=== PATIENT | female | born 2000 | race Caucasian/White ===

== ENCOUNTER 2024-11-30 18:42 | Emergency (ER) | payer OTHER, MEDICAID, SELFPAY ==
--- NOTE | ~2024-11-30 | XR_ITS ---
EXAMINATION: XR chest 1V portable Exam Date/Time: 11/30/2024 21:15 CDT HISTORY: SOB Comparison: None. RESULT: Lines, tubes, and devices: None. Lungs and pleura: Low lung volumes, with crowding. Otherwise clear. Cardiomediastinal silhouette: Unremarkable. Other: No acute osseous or upper abdominal finding. IMPRESSION: No acute cardiopulmonary process. Reviewed, dictated and finalized at location K.
[2024-11-30 18:52] VITALS: BP 112/67; PULSE 128; RESP 18; TEMP 36.7; O2SAT 100
--- OUTSIDE RECORDS SUMMARY | 2024-11-30 19:10 | XMS_ITS | CONTINUITY OF CARE DOCUMENT ---
Author Name freeman millard Address Unknown Organization [facility] Address [id number] [place] [address] [address] [place] [address] Phone [phone] Care Team Providers Care Mainspring Strip Gauger Name Role Phone Gita Morris MD Unavailable [phone] SEBAS URENA MD Unavailable [phone] INSURANCE PROVIDERS Payer name Policy type / Coverage type [place] [employer] Medicaid 1 [id number]
--- OUTSIDE RECORDS SUMMARY | 2024-11-30 19:10 | XMS_ITS | Clinical Summary ---
Author Organization [facility] Address [address] [place] [address] Phone Care Team Providers Care Application Defense Manager Name Role Phone Blank Nicole MD Primary Care Provider Unavail able Allergies No known active allergies Medications No known medications Active Problems No known active problems Immunizations Immunization Administration Dates Next Due (ACTHIB/HIBERIX)(2 MOS-5 YRS /6 WKS-4 YRS) HAEMOPHILUS INFLUENZAE TYPE B VACCINE (HIB), PRP-T CONJUGATE, 4 DOSE, 0.5 ML IM 08/12/2002,2001,2001,04/18 (ADACEL/BOOSTRIX)(10 YR UP) TDAP VACCINE, 0.5ML, IM 08/10/2020,07/10/2012 (GARDASIL 9)(9-45 YRS) HUMAN PAPILLOMAVIRUS VACCINE, TYPES 6, 11, 16, 18, 31, 33, 45, 52, 58, NONAVALENT (9VHPV), 2 OR 3 DOSE, IM 08/10/2020 (GARDASIL)(9-45 YRS) HUMAN PAPILLOMAVIRUS VACCINE, TYPES 6, 11, 16, 18, QUADRIVALENT (4VHPV), 3 DOSE, IM 06/22/2015 (INFANRIX)(6 WKS-6 YRS) DIPT HERIA, TETANUS TOXOIDS, AND ACCELLULAR PERTUSSIS VACCINE (DTAP), 0.5 ML IM 03/21/2006,08/12/2002,2001,06/20,2001 (IPOL)(6 WKS AND UP) POLIOVI PACHECO VACCINE, INACTIVATED (IPV), 3 DOSE, SUBCUT OR IM 03/21/2006,08/12/2002,2001,04/18 (M-M-R II/PRIORIX)(12 MO UP) MEASLES, MUMPS AND RUBELLA VIRUS VACCINE, 0.5 ML IM/SUBCUT 05/12/2007,03/21/2006 (MENACTRA)(9 MO-55 YR) MENIN GOCOCCAL POLYSACCHARIDE A, C, Y AND W-135 DIPTHERIA TOXOID CONJUGATE VACCINE, (PF), 0.5ML, IM 07/10/2012 (VARIVAX)(12 MOS UP)VARICELL A VIRUS VACCINE (PF) 0.5 ML, SUB CUT 11/13/2007,02/10/2002 Hepatitis B Vaccine 2001,2001,2000 INFLUENZA VACCINE QUADRIVALE NT 6 MOS UP PF IM 08/10/2020,05/31/2017 Influenza Seasonal Unspecifi ed Formulation IM 06/22/2015 Meningococcal A Conjugate Vaccine IM 05/31/2017 PREVNAR (PCV13) pneumococcal 13-valent conjugate Vaccine 05/12/2002,2001,2001,04/18 Skin Test TB 08/10/2020 Social History Tobacco Use Types Packs/Day Years Used Date Smoking Tobacco: Never Assessed Comments Unknown Sex and Gender Information Value Date Recorded Sex Assigned at Not on file Legal Sex Female 3:03 PM CDT Gender Identity Not on file Sexual Orientation Not on file Last Filed Vital Signs Vital Sign Reading Time Taken Comments Blood Pressure 112/72 01/05/2021 10:24 AM CDT Pulse 78 01/05/2021 10:24 AM CDT Temperature 36.7 C (98 F) 01/05/2021 10:24 AM CDT Respiratory Rate 18 01/05/2021 10:24 AM CDT Oxygen Saturation 100% 01/05/2021 10:24 AM CDT Inhaled Oxygen Concentration - - Weight 104.8 kg (231 lb) 01/05/2021 10:24 AM CDT Height 172.7 cm (5' 8 ) 08/10/2020 10:18 AM RN SOCIAL SERVICES Body Mass Index 35.12 08/10/2020 10:18 AM RN SOCIAL SERVICES Plan of Treatment Health Maintenance Due Date Last Done Comments CHLAMYDIA SCREENING (ANNUAL) 11-24 YEARS 02/09/2012 CERVICAL CANCER SCREENING 2022 PAP SMEAR 2022 PAP SMEAR 2022 INFLUENZA VACCINE (#1) 2024 , 05/31/2017, 06/22/2015 DTAP/TDAP/TD VACCINES (8 - T d or Tdap) 08/10/2030 08/10/2020, 07/10/2012, 03/21/2006, Additional history exists HEPATITIS B VACCINES Completed 2001, 2001, 2001 PNEUMOCOCCAL VACCINE 0-49 YEARS Completed 05/12/2002, 2001, 2001, Additional history exists HPV VACCINES Completed 08/10/2020, 06/22/2015 Insurance Care Teams Application Defense Manager Relationship Specialty Start Date End Date Blank Nicole MD PCP - General Pediatrics 05/31/17
--- OUTSIDE RECORDS SUMMARY | 2024-11-30 19:10 | XMS_ITS | Clinical Summary ---
Author Organization [facility] Address [address] [place] [address] Care Team Providers Care Termite Renewal Inspector Name Role Phone Farzaneh Adkins MD Primary Care Provider [phone] Source Comments [facility] Affiliates and Associated Physician Practices is amultiple site organization consisting of ambulatory clinics and hospital sitesin [place], [place], [place] and [place]. This disclosure is being madepursuant to the Care Everywhere program and may not contain all information available regarding this patient. Last updated 18.[facility] [place] Allergies No known active allergies Medications Be aware that medications may not be up to date on this document. Always verify current medications with the patient. No known medications Active Problems No known active problems Social History Tobacco Use Types Packs/Day Years Used Date Smoking Tobacco: Never Assessed Alcohol Use Standard Drinks/Week Comments No 0 (1 standard drink = 0.6 oz pur e alcohol) Sex and Gender Information Value Date Recorded Sex Assigned at Not on file Gender Identity Not on file Sexual Orientation Not on file Last Filed Vital Signs Vital Sign Reading Time Taken Comments Blood Pressure 118/65 02/03/2012 8:15 AM CDT Pulse 110 02/03/2012 8:15 AM CDT Temperature 37.1 C (98.8 F) 02/03/2012 8:15 AM CDT Respiratory Rate 22 02/03/2012 8:15 AM CDT Oxygen Saturation 100% 02/02/2012 11:36 PM CDT Inhaled Oxygen Concentration - - Weight 61 kg (134 lb 7.7 oz) 02/02/2012 7:46 PM CDT Height - - Body Mass Index - - Plan of Treatment Health Maintenance Due Date Last Done Comments PAP SMEAR 2001 HIV SCREENING 02/09/2016 HPV VACCINE (1 - 3-dose series) 02/09/2016 CHLAMYDIA/GONORRHEA SCREENING 2017 MENINGOCOCCAL (Group B) VACC INE SHARED DECISION-MAKING (1 of 2 - Standard) 2017 HEPATITIS C SCREENING 02/04/2019 DTAP/TDAP/TD VACCINES (1 - Tdap) 02/09/2020 HEPATITIS B VACCINE (1 of 3 - 19+ 3-dose series) 02/09/2020 COVID-19 VACCINE (1 - 2023-2 5 season) 2024 INFLUENZA VACCINE (#1) 2024 DEPRESSION SCREENING 09/09/2024 ZOSTER VACCINE (1 of 2) 2051 HIB VACCINE Aged Out No longer eligi ble based on patient's age to complete this topic MENINGOCOCCAL GROUPS A/C/Y/W VACCINE Aged Out No longer eligible b ased on patient's age to complete this topic PNEUMOCOCCAL VACCINE Aged Out No long er eligible based on patient's age to complete this topic Care Teams Termite Renewal Inspector Relationship Specialty Start Date End Date Farzaneh Adkins MD [address] [place] [address] PCP - General 02/02/12
--- OUTSIDE RECORDS SUMMARY | 2024-11-30 19:10 | XMS_ITS | Data Portability ---
Author Organization [facility] Address [address] [place] [address] Care Team Providers Care Manager [employer]icon[employer] Name Role Phone AVA HERNANDEZ Primary Care Provider Assessment Encounter Date Assessment Date Assessment LastModified by Organization Details LastModified Time 10/21/2024 10/21/2024 Patient is ___weeks . Discussed plan. [email or web address] Not available 10/21/2024 14:46:15 11/11/2024 11/11/2024 Patient is _28__weeks . Discussed plan. [email or web address] Not available 11/11/2024 15:49:24 11/25/2024 11/25/2024 Patient is _30__weeks . Discussed plan. Not available 11/25/2024 14:45:42 Plan of Treatment Reminders Order Date Submit Date Provider Last Modified By Organization Details Last Modified Time Details Appointments U/S OB GROWTH 2024 01:00P M ULTRASOUND Not available Not available Not available OB ROUTINE 2024 11:00A M Shwetha Pena CNM Not available Not available Not available OB ROUTINE 2024 09:45A M IMNGO MARCOS MD Not available Not available Not available Lab None recorde d. Referral None recorde d. Procedures None recorde d. Surgeries None recorde d. Imaging US, obstetr ic, follow- up 2024 025 [email or web address] [place], [address], [place], [address], 11/05/2024 22:26:43 US, [facility] ic, follow- up 2024 025 [email or web address] [place], [address], [address], [place], [address], 10/15/2024 19:35:34 Medication Orders None recorde d. Patient TargetsNo targets recorded. Patient InstructionsNo instructions recorded. Reason for Referral None Reported. Results Created Date Observation Date Name Description Value Unit Range Abnormal Flag Note LastModifiedBy Organization Detail LastModifiedTime 11/12/1911/11/2024 HEMAT OCRIT (HCT) HCT 36.1 % (based on docume nted legal sex) 34.0-4 5.0 Not Available [facility] (Lab) [address], [place], [address], 11/12/2024 13:43:25 11/12/19 25 11/11/2024 HEMOG LOBIN (HGB) HGB 11.8 g/dL (based on docume nted legal sex) 11.6-1 5.4 Not Available [facility] (Lab) [address], [place], [address], 11/12/2024 13:43:25 11/12/19 25 11/11/2024 HIV 1/2 ANTIG EN/AN TIBOD Y, REFLE X CONFI RMATI ON HIV antigen/anti body Nonrea ctive nonrea ctive HIV-1 antig en and HIV-1 /HIV- 2 antib odies were not detec juana. No labor atory evide nce of HIV infec tion. Not Available [facility] (Lab) [address], [place], [address], 11/12/2024 13:43:26 11/12/19 25 11/11/2024 GTT - GESTA KIRAN L SENG N, ACOG OB glucose, 1 hour screen 92 mg/dL 70-135 Not Available [facility] (Lab) [address], [place], [address], 11/12/2024 13:43:26 11/12/19 25 11/11/2024 RPR SCREE N, REFLE X TITER /CONF IRMAT ION RPR qualitative Nonrea ctive nonrea ctive Not Available [facility] (Lab) [address], [place], [address], 11/12/2024 13:43:26 09/16/19 25 09/16/2024 US, obste tric, 2nd or 3rd trime ster No observ ation record ed. [email or web address] [place] [address], [place], [address], 09/16/2024 18:08:06 09/16/19 25 09/16/2024 US, obste tric, follo w-up No observ ation record ed. [email or web address] [address], [place], [address], 09/18/2024 17:43:31 10/15/19 25 10/15/2024 US, obste tric, follo w-up No observ ation record ed. [email or web address] [address], [place], [address], 10/28/2024 19:09:36 10/15/19 25 10/15/2024 US, obste tric, follo w-up No observ ation record ed. [email or web address] [place] [address], [place], [address], 10/15/2024 18:36:04 11/05/19 25 11/05/2024 US, obste tric, follo w-up No observ ation record ed. [email or web address] [place] [address], [place], [address], 11/05/2024 18:36:53 11/05/19 25 11/05/2024 US, obste tric, follo w-up No observ ation record ed. [address], [place], [address], 11/10/2024 09:29:45 Result Notes None recorded. Problems Name Problem SNOMED Code Status Onset Date Resolution Date Notes Provider Name and Address Organization Details Recorded Time 39868324 Active 2023 [facility] 12:10:37 Obesity 745706379 Active bmi 37-anten atal testing Shwetha Pena CNM [address], [place], [address], [facility] 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 4 12:36:02 COVID-19 337536260 Active 2024 bASA and serial growth Danica Simone [facility], [facility] 5 15:23:56 COVID-19 277391031 Active 2024 bASA and serial growth Danica Nichols [facility], [facility] 5 15:23:56 Problem Notes None recorded. Procedures Surgical History Date Name Laterality Status Provider Name and Address Organization Details Recorded Time 03/10/20 24 Date of Last Pap Smear completed Lesli Riojas [facility] 06/04/2024 13:18:31 09/09/19 09 tonsilectomy/adeno ids completed Leslifrederic Riojas [facility] 07/01/2024 16:59:33 09/09/19 07 adenomyomectomy completed Leslifrederic Riojas [facility] 07/01/2024 16:59:28 Imaging Results Imaging Date Name Status LastModified by Organiz ation Details LastModified Time 09/16/2024 US, obstetric, 2nd or 3rd trimester completed [email or web address] [place] [address], [place], [address], 09/16/2024 18:08:06 09/16/2024 US, obstetric, follow-up completed [email or web address] [address], [place], [address], 09/18/2024 17:43:31 10/15/2024 US, obstetric, follow-up completed [email or web address] [address], [place], [address], 10/28/2024 19:09:36 10/15/2024 US, obstetric, follow-up completed [email or web address] [place] [address], [place], [address], 10/15/2024 18:36:04 11/05/2024 US, obstetric, follow-up completed [email or web address] [place] [address], [place], [address], 11/05/2024 18:36:53 11/05/2024 US, obstetric, follow-up completed [email or web address] [address], [place], [address], 11/10/2024 09:29:45 Procedure Notes None recorded. Medical Equipment None Reported. Allergies No known drug allergies Medications Name Sig Start Date Stop Date Status Note LastModified by Organization Details LastModified Time benzonatate 200 mg capsule TAKE 1 CAPSULE BY MOUTH THREE TIMES DAILY NEEDED FOR COUGH 12/16 completed Not Available Not Available Not Available prednisone 20 mg tablet TAKE 2 TABLETS BY MOUTH DAILY WITH FOOD FOR 5 DAYS. DO NOT TAKE WITH ASPIRIN OR NSAIDS SUCH ALEVE OR IBUPROFEN ETC 12/16 completed Not Available Not Available Not Available amoxicillin 875 mg tablet TAKE 1 TABLET BY MOUTH EVERY 12 HOURS FOR 10 DAYS 12/16 completed Not Available Not Available Not Available scopolamine 1 mg over 3 days transdermal patch APPLY 1 PATCH BY TRANSDERM AL ROUTE FOR 3 DAYS. 11/25 completed Not Available Not Available Not Available albuterol sulfate HFA 90 mcg/actuati on aerosol inhaler INHALE 2 PUFFS BY MOUTH EVERY 4 HOURS NEEDED 12/16 completed Not Available Not Available Not Available ondansetron 4 mg disintegrat ing tablet DISSOLVE 1 TABLET ON THE TONGUE EVERY 6 HOURS 11/25 completed Not Available Not Available Not Available Vitafol Ultra 29 mg iron-1 mg-200 mg capsule active Not Available Not Available Not Available Aurovela Fe 1-20 (28) 1 mg-20 mcg (21)/75 mg (7) tablet TAKE 1 TABLET BY MOUTH EVERY DAY 03/10 completed Not Available Not Available Not Available Nextstellis 3 mg-14.2 mg (28) tablet TAKE 1 TABLET BY MOUTH EVERY DAY 06/05 completed Not Available Not Available Not Available Vitals Date Recorded Body weight Body mass index (BMI) Body height Systolic blood pressure Diastolic blood pressure Provider Name and Address Organization Details Last Updated DateTime 10/21/2024 800308.0 2221 g 36.5 kg/m2 170.18 cm 115 mm[Hg] 68 mm[Hg] [facility] 5 14:46:49 Date Recorded Body weight Body mass index (BMI) Body height Systolic blood pressure Diastolic blood pressure Provider Name and Address Organization Details Last Updated DateTime 11/11/2024 429865.4 2984 g 36.3 kg/m2 170.18 cm 129 mm[Hg] 77 mm[Hg] Lesli [facility] 5 15:46:39 Date Recorded Body weight Body mass index (BMI) Body height Systolic blood pressure Diastolic blood pressure Provider Name and Address Organization Details Last Updated DateTime 11/25/2024 751320.4 2984 g 36.3 kg/m2 170.18 cm 116 mm[Hg] 73 mm[Hg] Lesli [facility] 14:24:46 Social History Question Answer Notes LastModified by Organizat ion Details LastModified Time Tobacco Smoking Status Never Smoker Jane willard, [facility] 12/17/2023 13:45:36 What Is Your Level Of Alcohol Consumption? None [email or web address] Information not available 06/05/2024 If You Are , What Was Your Level Of Alcohol Consumption Prior To ? Occasional [email or web address] Information not available 06/05/2024 How Many Years Have You Consumed Alcohol? 1 Information not available 03/10/2024 Are You Blind Or Do You Have Difficulty Seeing? No Information not available 03/10/2024 What Is Your Level Of Caffeine Consumption? Occasional Information not available 12/17/2023 How Much Tobacco Do You Chew? None Information not available 03/10/2024 In The 14 Days Before Symptom Onset, Have You Had Close Contact With A Laboratory-confir med COVID-19 While That Case Was Ill? No Information not available 12/17/2023 In The 14 Days Before Symptom Onset, Have You Had Close Contact With A Person Who Is Under Investigation For COVID-19 While That Person Was Ill? No Information not available 12/17/2023 Have You Been To An Area Known To Be High Risk For COVID-19? No Information not available 12/17/2023 Are You Deaf Or Do You Have Serious Difficulty Hearing? No Information not available 03/10/2024 What Type Of Diet Are You Following? REGULAR Information not available 03/10/2024 What Is The Highest Grade Or Level Of School You Have Completed Or The Highest Degree You Have Received? 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 No Information not available 03/10/2024 Do You Use Protection During Sex? No Information not available 03/10/2024 Do You Use Your Seat Belt Or Car Seat Routinely? Yes Information not available 03/10/2024 Do You Have Smoke And Carbon Monoxide Detectors In Your Home? Yes Information not available 03/10/2024 At What Age Did You Start Smoking Tobacco? 0 Information not available 03/10/2024 How Much Tobacco Do You Smoke? No kindred Information not available 03/10/2024 Do You Feel Stressed (tense, Restless, Nervous, Or Anxious, Or Unable To Sleep At Night)? GU4318-1 [email or web address] Information not available 07/01/2024 Do You Use Any Illicit Or Recreational Drugs? No kindred Information not available 03/10/2024 Do You Use Sunscreen Routinely? Yes kindred Information not available 03/10/2024 How Many Years Have You Smoked Tobacco? 0 Information not available 03/10/2024 Have You Used IV Drugs? No Information not available 03/10/2024 Sex: Unknown Functional Status Question Answer Note LastModified by Organizat ion Details LastModified Time Do you have difficulty walking or climbing stairs? No [email or web address] Information not available 06/05/2024 Are you able to walk? YESWOREST Information not available 03/10/2024 Are you able to care for yourself? Yes Information not available 06/05/2024 Do you have difficulty dressing or bathing? No [email or web address] Information not available 06/05/2024 What is your exercise level? Occasional Information not available 03/10/2024 Mental Status None recorded. Family History Relationship Description Onset Age of this Age Resolved Age Notes LastModified by Organization Details LastModified Time Mother Hypertensive disorder kindred Not available 2023 13:48:23 Paternal Grandmother Malignant tumor of breast [email or web address] Not available 2023 14:05:10 Paternal Grandfather Diabetes mellitus Not available 2023 13:49:17 Maternal Aunt Polycystic ovary syndrome [email or web address] Not available 11/07 14:08:15 Maternal Grandmother Disorder of thyroid gland [email or web address] Not available 07/22 12:10:06 Maternal Grandfather Hypertensive disorder [email or web address] Not available 07/22 12:10:06 Maternal Grandfather Diabetes mellitus [email or web address] Not available 09/16 16:36:23 Father Disorder of thyroid gland Not available 07/22 12:10:06 Medical History Condition Response Allergies (Food, seasonal, environmental ) N Other N Breast Cancer N Drug/Latex Allergies/Reactions N Blood Transfusion N Dermatologic Disorders N Lung Disease N Defects or Inherited Disease N Breast Problem N Gestational Diabetes N Hematologic disorders N Anesthesia Complications N History of STI N Deep Vein Thrombosis N Polycystic ovary syndrome N Anxiety Disorder N Autoimmune disease N Arthritis N Infertility N Polyps N Acid Reflux (GERD) N History of abnormal pap N Cancer N Stroke N Varicosities N Neurologic/Epilepsy N Endometriosis N High Cholesterol N Headaches N Fibromyalgia N Kidney Disease N Heart Problems N Kidney or Bladder Problems N Thyroid Problems N GI Problems N Eating Disorder N Anemia N Art (IVF or FET) N Psychiatric Illness N Ovarian Cancer N Diabetes N Pulmonary (TB, Asthma) N Hepatitis/Liver Disease N No Past Medical History N Eczema N Urinary Tract Infection N Abuse/Domestic Violence N Asthma N Trauma/Violence N Depression/ depression N Heart Disease N Pre-Eclampsia N Hypertension N Osteoporosis N Thrombophilias N Gynecological History Statement/Question Response Abnormal Pap N Date of Last Mammogram Date of LMP 03/14/2024 N On BCP's at Conception? N STIs/STDs N Was last menstrual period normal Y HPV Vaccine Y Colposcopy Duration of Flow (days) 4 Current Control Method Date of control 12/27/2023 Are cycles usually normal N Date of Last Colonoscopy Sexually Active? Y N/A Menses Monthly Y Date of DEXA bone scan Age of first menstrual cycle 13 Date of Last Pap Smear 03/10/2024 Sexual Problems? N LMP Approximate N Obstetrics History GPAL:G 1 P 0 0 0 0 Type Value Living 0 Total 1 Past Encounters Encounter ID Performer Location Encounter Start Date Encounter Closed Date Diagnosis/Indication Diagnosis SNOMED-CT Code Diagnosis ICD10 Code Diagnosis Note [id number] MARIA Martinez [place] [address] [address] 12/17/2023 13:38:11 12/17/2023 14:38:14 Contraception care management 223094672 Z30.9 Discussed all control options in great detail. Pt would like to start ocp. She is aware of the risks and benefits. She does not have any medical condition that is contraindi cated with the use of estrogen containing control. Pt will start her pills on the first day following the start of her period. She is aware it is not effective for control the first month. She is also aware of the importance of taking at the same time every day. Encouraged use of condoms as the pill does not protect against STD's. Will return in 3-4 months for med check. Consent was read and signed. Pt verbalized understand ingkajal ed STI screenRTC for WWE/med check in 3-4 months (pt opts to defer pap until f/u appointmen t) Time spent in visit is a total of 22 mins with at least 50% of visit consisting of counseling and review of plan of care. Initial pr escription of oral contraception 759600465 Z30.011 [id number] MARIA Martinez [place] [address] [address] 03/10/2024 16:17:42 03/11/2024 11:09:35 Screening procedure 84818974 Z13.9 Gynecologi c examination 59521676 Z01.419 Z11.3 Z11.8 WWEpap updateddec lined STI screenrout ine labs/PCP It is strongly advised to have an annual flu shot and up can obtain at most pharmacies . If you have not had a TDap shot in the last 10 years you should obtain one as well.Discu ssed with patient & provided with informatio n regarding HPV vaccine if applicable . Encourage safe sexual practices, to use condoms and limit partners if not already in a monogamous relationsh ip.Do monthly self breast exams. BRCA testing is now available for patients with strong genetic history of female cancer. If interested contact the office.Eng age in regular exercise. Avoid tobacco and illicit drugs. This lifestyle behavior pattern will lead to less health conditions and longer life span. If BMI greater than 25 dietary consult advised. Patient received above instructio ns, and questions have been answered. If you have any questions please call or respond to this email. Patient was made aware of the patient portal and may obtain a paper copy of today's plan if desired. Contracept ion care management 442865698 Z30.9 All BC options discussedo pts to switch to nextstelli srx sent, r/b/a reviewedre cords requested from recent pelvic u/s at [facility] d check in 3-4 months [id number] Pamela Zee [place] [address],[place] [address] 06/05/2024 13:55:23 06/15/2024 14:54:37 Uterine size for dates discrepancy 148077159 O26.849 [id number] [facility] [address] [address] 06/05/2024 13:57:09 06/08/2024 07:47:10 [id number] Kaila Correa [place] [address],[place] [address] 06/29/2024 16:26:08 06/29/2024 16:57:01 [id number] [facility] [address] [address] 07/01/2024 16:31:47 07/02/2024 10:28:26 Nausea and vomiting 98520505 R11.2 Amenorrhea 87760033 N91. 2 reviewed precaution s and educationo k for flu/covid vaccinesed c 02/01/25, continue vitamin dailypap up to date [id number] [facility] [address],[place] [address] 07/21/2024 12:14:52 07/21/2024 13:12:57 screening 363105479 Z36.82 Z3A.12 [id number] [facility] [address] [address] 07/22/2024 11:55:57 07/22/2024 12:52:32 Routine care 944378571 Z34.90 Gestation period, 12 weeks 25139019 Z3A.12 Dizziness 501499128 R42 [id number] [facility] [address] [place] [address] 08/19/2024 11:16:38 08/19/2024 12:09:53 Abdominal pain in 839487696 O99.891 Z3A.[id number] [facility] [address] [address] 08/19/2024 11:17:59 08/19/2024 14:00:37 Gestation period, 16 weeks 62005232 Z3A.[id number] [facility] [address],[place] [address] 09/16/2024 14:36:08 09/16/2024 17:06:53 Gestation period, 20 weeks 60825846 Z3A.20 [id number] [facility] [address] [address] 09/16/2024 14:46:47 09/16/2024 16:21:14 screening for malformation 846142210 Z36.3 Z3A.20 [id number] [facility] [address] [address] 10/15/2024 11:44:24 10/15/2024 14:35:28 screening 646282704 Z36.2 Z3A.[id number] [facility] [address] [address] 10/21/2024 14:31:12 10/21/2024 14:59:33 Gestation period, 25 weeks 42667467 Z3A.25 [id number] [facility] [address] [address] 11/05/2024 14:48:54 11/05/2024 15:54:01 condition affecting obstetrical care of mother 357546500 O35.3XX0 Z3A.[id number] [facility] [address] [address] 11/11/2024 15:30:06 11/11/2024 16:02:07 Gestation period, 28 weeks 80574753 Z3A.[id number] [facility] [address] [address] 11/25/2024 14:07:57 11/25/2024 14:50:54 Gestation period, 30 weeks 03134263 Z3A.30 Health Concerns Section Related Observation LastModified by Organization Detai ls LastModified Time None Recorded Concern Status LastModified by Organization Details LastModified Time None Recorded Advance Directives Directive None Recorded Payers Encounter Date Sequence Insurance Name Policy Number Policy Acosta Covered Member ID Acosta Member ID Guarantor Name 10/15/2024 1 [employer] - [employer]AN MANAGEMENT (PPO) 2001 Girma Chin [id number] Roberto Cobianell 10/15/2024 2 [place] [facility] Roberto Cobianell [id number] Roberto Muhammad 10/21/2024 1 [employer] - [employer]AN MANAGEMENT (PPO) 2001 Girma Chin [id number] Roberto Cobianell 10/21/2024 2 [place] [facility] Roberto Cobianell [id number] Roberto Cobianell 11/05/2024 1 [employer]AN MANAGEMENT (PPO) 2001 Girma Chin [id number] Roberto Cobianell 11/05/2024 2 [place] [facility] Roberto Muhammad [id number] Roberto Muhammad 11/11/2024 1 [employer]AN MANAGEMENT (PPO) 2001 Girma Chin [id number] Roberto Muhammad 11/11/2024 2 [place] [facility] Roberto Muhammad [id number] Roberto Muhammad 11/25/2024 1 [employer] - [employer] MANAGEMENT (PPO) 2001 [address]ma Chin [id number] Roberto Cobianell 11/25/2024 2 [place] [facility] Roberto Muhammad [id number] Roberto Muhammad OBGyn Episode Ob Episode Information Episode Created Date Number of Fetuses Patient Bloodtype Patient rh Status Prepregnancy Weight lbs Domestic Partner Domestic Partner Phone Father Name Payroll Officer Status 07/22/20 24 1 B Positive 230 Austyn Muhammad OPEN Fetus Data First Name Last Name Admitted to NICU Weight (g) Sex Living Outcome Pediatric Complications Fetus ID Race Codes Race Delivery Type [id number] Problems Problem Notes ovarian cyst Problem Name Start Date End Date Resolution Snomed Code Not e Primigravida 183722896 bASA COVID-19 09/28/2024 856813869 bASA and serial growth Obesity 181776397 bmi 37-ant enatal testing Deshaun Calculation Initial Deshaun Date Initial Exam Date Initial Exam Provider Initial Ultrasound Date Last Menstrual Period Date Ultra Sound Weeks Gestation 01/30/2025 06/29/2024 Shwetha Pena 06/05/2024 03/14/2024 5 Eighteen To Twenty Week Deshaun Update Ultra Sound Date Fundal Height At Umbil Quickening Date Ultra Sound Latest Weeks Gestation Final Deshaun Confirmed By Final Deshaun Confirmed Date Final Deshaun Date Ultra Sound Latest Days Gestation 0 0 Pre-juan f Flowsheet Flowsheet Date 07/22/2024 Parisi Score Blood Edema Fundus Height Fundus Units Glucose Ketones Leukocytes Nitrite Labor Signs Protein Cervic Dilation Cervic Effacement Cervic Station neg trace none trace Type Weight in lbs Pre/Post Dialysis Refused Weight 225.135887679109 BP Diastolic BP Location Tested BP Systolic BP Type 76 122 Fetus Heart Rate Present Fetus Movement A No Comments Patient is having some nause a. has kendy byrd for scop patch, reviewed US, cyst ED precautions, start routine care Flowsheet Date 08/19/2024 Parisi Score Blood Edema Fundus Height Fundus Units Glucose Ketones Leukocytes Nitrite Labor Signs Protein Cervic Dilation Cervic Effacement Cervic Station Type Weight in lbs Pre/Post Dialysis Refused BP Diastolic BP Location Tested BP Systolic BP Type Fetus Heart Rate Present Fetus Movement Comments Flowsheet Date 08/19/2024 Parisi Score Blood Edema Fundus Height Fundus Units Glucose Ketones Leukocytes Nitrite Labor Signs Protein Cervic Dilation Cervic Effacement Cervic Station none Type Weight in lbs Pre/Post Dialysis Refused 225.378656192768 BP Diastolic BP Location Tested BP Systolic BP Type 77 115 Fetus Heart Rate Present Fetus Movement A No Comments Patient is having some nause a and pressure. reviewed us, reviewed ovarian cysts, f/u 4 weeks, precautions and education Flowsheet Date 09/16/2024 Parisi Score Blood Edema Fundus Height Fundus Units Glucose Ketones Leukocytes Nitrite Labor Signs Protein Cervic Dilation Cervic Effacement Cervic Station Type Weight in lbs Pre/Post Dialysis Refused BP Diastolic BP Location Tested BP Systolic BP Type Fetus Heart Rate Present Fetus Movement Comments Flowsheet Date 09/16/2024 Parisi Score Blood Edema Fundus Height Fundus Units Glucose Ketones Leukocytes Nitrite Labor Signs Protein Cervic Dilation Cervic Effacement Cervic Station none neg Type Weight in lbs Pre/Post Dialysis Refused [id number] BP Diastolic BP Location Tested BP Systolic BP Type 80 117 Fetus Heart Rate Present Fetus Movement A Yes Comments reviewed precautions and edu cation, +FM, had covid week ago or so start bASA and q 4 week US, discussed labor, low intervention. will find out gender next week! anatomy incomplete Flowsheet Date 10/15/2024 Parisi Score Blood Edema Fundus Height Fundus Units Glucose Ketones Leukocytes Nitrite Labor Signs Protein Cervic Dilation Cervic Effacement Cervic Station Type Weight in lbs Pre/Post Dialysis Refused BP Diastolic BP Location Tested BP Systolic BP Type Fetus Heart Rate Present Fetus Movement Comments Flowsheet Date 10/21/2024 Parisi Score Blood Edema Fundus Height Fundus Units Glucose Ketones Leukocytes Nitrite Labor Signs Protein Cervic Dilation Cervic Effacement Cervic Station neg none Type Weight in lbs Pre/Post Dialysis Refused [id number] BP Diastolic BP Location Tested BP Systolic BP Type 68 115 Fetus Heart Rate Present Fetus Movement A Yes Comments Flowsheet Date 11/05/2024 Parisi Score Blood Edema Fundus Height Fundus Units Glucose Ketones Leukocytes Nitrite Labor Signs Protein Cervic Dilation Cervic Effacement Cervic Station Type Weight in lbs Pre/Post Dialysis Refused BP Diastolic BP Location Tested BP Systolic BP Type Fetus Heart Rate Present Fetus Movement Comments Flowsheet Date 11/11/2024 Parisi Score Blood Edema Fundus Height Fundus Units Glucose Ketones Leukocytes Nitrite Labor Signs Protein Cervic Dilation Cervic Effacement Cervic Station neg none Type Weight in lbs Pre/Post Dialysis Refused [id number] BP Diastolic BP Location Tested BP Systolic BP Type 77 129 Fetus Heart Rate Present Fetus Movement A Yes Comments doing well ! +FM, girl! GCT today, precautions and education, planning tdap unsure about rsv Flowsheet Date 11/25/2024 Parisi Score Blood Edema Fundus Height Fundus Units Glucose Ketones Leukocytes Nitrite Labor Signs Protein Cervic Dilation Cervic Effacement Cervic Station Type Weight in lbs Pre/Post Dialysis Refused [id number] BP Diastolic BP Location Tested BP Systolic BP Type 73 116 Fetus Heart Rate Present Fetus Movement A Yes Comments +FM doing well, will see dr chung for peds, will discuss rsv and preadmit at next visit, discussed kick counts precautions reviewed f/u 2 weeks Menstrual History Last Menstrual Date Menses Monthly On Bcp Conception Prior Menses Frequency Hcg Plus Date Menarche Onset Age 0703/14/20[birth year] Delivery Information Delivery Date Delivery Type Labor Anesthesia Weeks Gestation Incision Type Labor Labor Length Hrs Delivered By Post Complications Tubal Sterilization Discharge Date Comments Discharge Information Feeding Method Contraceptive Method Maternal HG B and HCT Levels
[2024-11-30 21:02] VITALS: BP 129/77; PULSE 130; PULSE 133; RESP 20; TEMP 36.9; O2SAT 98
[2024-11-30 21:03] VITALS: O2SAT 100
--- NOTE | 2024-11-30 21:04 | ECG_ITS ---
Test Date: 2024-11-30 21:12:50 Measurements Intervals [place] Rate: 140 P: -4 VA: 136 QRS: 126 QRSD: 83 T: -26 QT: 269 QTc: 412 Interpretive Statements SINUS TACHYCARDIA, LEFT POSTERIOR FASCICULAR BLOCK [QRS AXIS > 109, INFERIOR Q] POOR R WAVE PROGRESSION No previous ECG available for comparison Electronically Signed On 12-01-2024 16:03:51 CDT by Gamaliel Doyle M.D.
[2024-11-30 21:05] VITALS: O2SAT 100
[2024-11-30 21:23] LABS: Basophils Percent Auto 0.3 % (0.2-1.2); Eosinophils Percent Auto 0.1 % (0-4.4); Hematocrit 35.8 % (42.0-52.0); Hemoglobin 11.7 g/dL (14.0-18.0); Immature Granulocyte Absolute 0.06 K/mm3 (0.00-0.031); Immature Granulocyte Percent A 0.7 % (0-0.5); Lymphocytes Absolute Auto 0.52 K/mm3 (0.9-3.2); Lymphocytes Percent Auto 5.7 % (18.3-44.2); Mean Corpuscular HGB Conc 32.7 g/dl (32-36); Mean Corpuscular Hemoglobin 28.2 pg (26-34); Mean Corpuscular Volume 86.3 fl (80-100); Mean Platelet Volume 10.7 fl (7.4-10.4); Monocytes Absolute Auto 0.8 K/mm3 (0.1-0.6); Monocytes Percent Auto 8.3 % (2.6-8.5); Neutrophils Absolute Auto 7.7 K/mm3 (1.3-6.7); Neutrophils Percent Auto 84.9 % (45.5-73.1); Platelet Count Result 224 k/mm3 (150-375); Red Blood Count 4.15 M/mm3 (4.6-6.20); Red Cell Distribution Width 13.8 % (11.5-14.5); White Blood Count 9.1 K/mm3 (4.5-10.0)
[2024-11-30 21:34] LABS: Alanine Aminotransferase 31 U/L (6-35); Albumin Level 3.9 g/dL (3.5-5.1); Alkaline Phosphatase 95 U/L (38-126); Anion Gap 12 mmol/L (4-12); Aspartate Amino Transferase 32 U/L (14-36); Bilirubin,Total 0.4 mg/dL (0.2-1.3); Blood Urea Nitrogen 3 mg/dL (7-17); Calcium 9.3 mg/dL (8.4-10.2); Carbon Dioxide 19 mmol/L (22-30); Chloride 103 mmol/L (98-107); Estimated CRCL calculation 162 ml/min; Estimated Glomerular Filt Rate > 60; Glucose 106 mg/dL (65-110); Potassium 4.1 mmol/L (3.4-5.0); Sodium 134 mmol/L (137-145)
--- OUTSIDE RECORDS SUMMARY | 2024-11-30 21:35 | XMS_ITS | Clinical Summary ---
Author Organization [facility] Address [address] [place] [address] Phone Care Team Providers Care Epic [facility] Name Role Phone Blank Nicole MD Primary [...] cm (5' 8 ) 08/10/2020 10:18 AM MOLD SHAKER Body Mass Index 35.12 08/10/2020 10:18 AM MOLD SHAKER Plan of Treatment Health Maintenance Due Date [...] VACCINES Completed 08/10/2020, 06/22/2015 Insurance Care Teams [facility] Relationship Specialty Start Date End Date Blank Nicole MD PCP - General Pediatrics 05/31/17
--- OUTSIDE RECORDS SUMMARY | 2024-11-30 21:35 | XMS_ITS | CONTINUITY OF CARE DOCUMENT ---
Author Name freeman millard Address Unknown Organization [facility] Address [address] [place] [address] [address] [place] [address] Phone [phone] Care Team Providers Care Assistant Food Service Director Name Role Phone Gita Morris MD Unavailable SEBAS URENA MD Unavailable [phone] INSURANCE PROVIDERS Payer name Policy type / Coverage type [place] red democrat [employer] Medicaid 1 [id number]
--- OUTSIDE RECORDS SUMMARY | 2024-11-30 21:35 | XMS_ITS | Clinical Summary ---
Author Organization [facility] Address [address] [place] [address] Care Team Providers Care Wood Molder Name Role Phone Farzaneh Adkins MD Primary Care Provider Source Comments [facility] and Associated Physician Practices is amultiple site organization consisting of ambulatory clinics and hospital sitesin [place], [place]. This disclosure is being madepursuant to the Care Everywhere program and may not contain all information available regarding this patient. Last updated 18.[facility] [employer]! Allergies No known active allergies Medications Be [...] age to complete this topic Care Teams Wood Molder Relationship Specialty Start Date End Date Farzaneh Adkins MD [address] [place] [address] PCP - General 02/02/12
[2024-11-30] MEDS: SODIUM CHLORIDE 0.9% IV 1,000 ML 999 ML IV CONT (21:53)
[2024-11-30] MEDS: LIDOCAINE 2% VISC SOLN 15 ML UDC PO (21:54)
[2024-11-30] MEDS: MAG HYDROX/AL HYDROX/SIMETH 30 ML UDC PO (21:54)
[2024-11-30 21:59] LABS: Influenza A QL RT-PCR Negative (Negative); Influenza B QL RT-PCR Positive (Negative); RSV RNA, RT-PCR Negative (Negative); SARS-CoV-2 RNA PCR Negative (Negative)
[2024-11-30 22:36] VITALS: BP 114/63; PULSE 120; RESP 23; TEMP 36.8; O2SAT 100
--- NOTE | 2024-11-30 23:26 | ED.SOB ---
HPI - SOB/Dyspnea General Chief Complaint: Shortness of Breath/Dyspnea Stated Complaint: SOB Time Seen by Provider: 11/30/24 21:22 History of Present Illness HPI Narrative: Patient is a 24-year-old female who is 31 weeks that presents ER with cough. Cough associated with sinus congestion postnasal drip beginning yesterday so today is day 2. No documented fevers. No chest pain. Has burning in the back her throat especially when she lays down. Mild improvement with Tums. She sees Shwetha Pena at [facility] for her OB care. No urinary symptoms. . Related Data Home Medications ?Medication ?Instructions ?Recorded ?Confirmed ?Last Taken ?Type aspirin 81 mg chewable tablet 81 mg PO DAILY 11/30/24 11/30/24 11/30/24 History Allergies Allergy/AdvReac Type Severity Reaction Status Date / Time No Known Allergies Allergy Verified 11/30/24 21:03 Review of Systems Review of Systems: All systems reviewed & are unremarkable except as noted in HPI and below Constitutional: Constitutional: Reports no additional constitutional complaints Cardiovascular: Cardiovascular: Reports no additional cardiovascular complaints Respiratory: Respiratory: Reports no additional respiratory complaints Gastrointestinal: Gastrointestinal: Reports no additional gastrointestinal complaints [facility] Past Medical History Medical History (Updated 11/30/24 @ 23:31 by Senthil Lozada MD) Healthy female adult Surgical History Surgical History (Updated 11/30/24 @ 23:28 by Senthil Lozada MD) No pertinent past surgical history Exam Narrative: GENERAL: Well-appearing, well-nourished, and in no acute distress. HEAD: Normocephalic, atraumatic. ENT: Mucous membranes moist. CHEST: Clear to auscultation. No respiratory distress. HEART: Tachycardic and regular. Normal peripheral pulses. ABDOMEN: Soft, nontender, nondistended. EXTREMITIES: Normal range of motion. No edema. SKIN: Warm, dry, no rash. NEURO: Alert and oriented x3. PSYCH: Normal mood and affect. Course Course Emergency Course: Resting comfortably. Hydrated. Informed of results. First dose of Tamiflu here. Follow up with her OB. Patient's heart rate is elevated which may be related to some general. Burning in throat improved with viscous lidocaine/Mylanta. Heart rate in the 120 and is in sinus rhythm. Vital Signs Vital signs: Vital Signs Temperature 98.1 F 11/30/24 18:52 Pulse Rate 128 H 11/30/24 18:52 Respiratory Rate 18 11/30/24 18:52 Blood Pressure 112/67 11/30/24 18:52 Pulse Oximetry 100 11/30/24 18:52 Oxygen Delivery Room Air 11/30/24 18:52 Temperature 98.3 F 11/30/24 22:36 Pulse Rate 120 H 11/30/24 22:36 Respiratory Rate 23 H 11/30/24 22:36 Blood Pressure 114/63 11/30/24 22:36 Pulse Oximetry 100 11/30/24 22:36 Oxygen Delivery Room Air 11/30/24 21:05 MDM - SOB/Dyspnea Lab Data 11/30/24 21:15 11/30/24 21:15 Labs: Lab Results 11/30/24 Range/Units 21:15 WBC 9.1 (4.5-10.0) K/mm3 RBC 4.15 L (4.6-6.20) M/mm3 Hgb 11.7 L (14.0-18.0) g/dL Hct 35.8 L (42.0-52.0) % MCV 86.3 (80-100) fl MCH 28.2 (26-34) pg MCHC 32.7 (32-36) g/dl RDW 13.8 (11.5-14.5) % Plt Count 224 (150-375) k/mm3 MPV 10.7 H (7.4-10.4) fl Immature Gran % (Auto) 0.7 H (0-0.5) % Neut % (Auto) 84.9 H (45.5-73.1) % Lymph % (Auto) 5.7 L (18.3-44.2) % Harris % (Auto) 8.3 (2.6-8.5) % Eos % (Auto) 0.1 (0-4.4) % Baso % (Auto) 0.3 (0.2-1.2) % Lymph # (Auto) 0.52 L (0.9-3.2) K/mm3 Harris # (Auto) 0.8 H (0.1-0.6) K/mm3 Eos # (Auto) 0.0 (0-0.3) K/mm3 Baso # (Auto) 0.0 (0.0-0.1) K/mm3 Abs Immat Gran (auto) 0.06 H (0.00-0.031) K/mm3 Absolute Neuts (auto) 7.7 H (1.3-6.7) K/mm3 Absolute Nucleated RBC 0.000 (0.0-0.012) K/mm3 Nucleated RBC % 0.0 (0.0-0.2) % Sodium 134 L (137-145) mmol/L Potassium 4.1 (3.4-5.0) mmol/L Chloride 103 (98-107) mmol/L Carbon Dioxide 19 L (22-30) mmol/L Anion Gap 12 (4-12) mmol/L BUN 3 L (7-17) mg/dL Creatinine 0.56 L (0.7-1.0) mg/dL Estim Creat Clear Calc 162 ml/min Estimated GFR > 60 (59 - ) Glucose 106 (65-110) mg/dL Calcium 9.3 (8.4-10.2) mg/dL Total Bilirubin 0.4 (0.2-1.3) mg/dL AST 32 (14-36) U/L ALT 31 (6-35) U/L Alkaline Phosphatase 95 (38-126) U/L Total Protein 7.0 (6.3-8.2) g/dL Albumin 3.9 (3.5-5.1) g/dL Influenza A (RT-PCR) Negative (Negative) Influenza B (RT-PCR) Positive A (Negative) RSV (RT-PCR) Negative (Negative) SARS-CoV-2 RNA (RT-PCR) Negative (Negative) Imaging Data Radiologist's impression: ITS Impressions Chest X-Ray 11/30/24 22:07 IMPRESSION: No acute cardiopulmonary process. ECG Data EKG #1: ECG completion date: 11/30/24 ECG completion time: 21:12 EKG Interpretation: tachycardia (140), sinus rhythm, non-specific ST changes, normal QRS, normal QT and NL axis Discharge Plan Discharge Clinical Impression: Influenza B Patient Disposition: Home, Self-Care Condition: Stable Instructions: Influenza (ED) Additional Instructions: Return ER if you have increased shortness of breath, you lose consciousness, you cannot keep down food/water/medication, or you have additional concerns. Patient Language: Vietnamese Prescriptions: New oseltamivir 75 mg capsule 75 mg PO BID Qty: 9 0RF famotidine 10 mg tablet 10 mg PO BID Qty: 14 0RF No Action aspirin 81 mg tablet,chewable 81 mg PO DAILY Follow-up/Referrals: Krystle Mcleod DO [Primary Care Provider] - Shwetha Pena CNM [Certified Nurse Diving Board Assembler] - 1 Week
[2024-11-30 23:30] VITALS: BP 120/70; PULSE 120; RESP 19; TEMP 36.7; O2SAT 99
[2024-11-30] MEDS: OSELTAMIVIR PHOSPHATE 75 MG CAPSULE PO (23:32)
== END 2024-11-30 23:39 | disposition home or self-care (01) ==
PROVIDERS: Emergency Provider Emergency Medicine; PCP Family Medicine
DX: J10.1 Influenza due to other identified influenza virus with other respiratory manifestations (principal)
CPT/HCPCS: 36415; 71045; 80053; 85025; 87637; 93005; 96360; 99284; A9270; J7030

== ENCOUNTER 2024-12-02 21:00 | Emergency (ER) | payer OTHER, MEDICAID, SELFPAY ==
--- NOTE | ~2024-12-02 | CT_ITS ---
EXAMINATION: CTA chest PE protocol DATE: 12/03/2024 01:14 INDICATION: Cough. Tachycardia. TECHNIQUE: Computed tomography angiography (CTA) of the chest was performed with 100 mL Omnipaque-350 intravenous contrast timed to evaluate the pulmonary arteries. Coronal maximum intensity projection 3D-reconstructions were created by the technologist. Automated exposure control and iterative reconst ruction technique were employed. The dose-length product was 793.07 mGy-cm. COMPARISON: CT abdomen and pelvis 03/05/2024 FINDINGS: There are centrilobular nodules and groundglass opacities in right lower lobe, consistent w ith pneumonia. No pleural effusion. The heart size is normal. No pericardial effusion. There is mild right hilar lymphadenopathy, likely reactive. There is no pulmonary embolus. There is mild chronic an terior wedging of T11 vertebral body. There is mild thoracic spondylosis. IMPRESSION: 1. No pulmonary embolus. 2. Right lower lobe pneumonia. 3. Mild right hilar lymphadenopathy, likely reactive. Reviewed, dictated and finalized at location A.
[2024-12-02 21:02] VITALS: BP 113/66; PULSE 120; RESP 15; TEMP 36.1; O2SAT 99
--- OUTSIDE RECORDS SUMMARY | 2024-12-02 21:02 | XMS_ITS | CONTINUITY OF CARE DOCUMENT ---
Author Name freeman millard Address Unknown Organization [facility] Address [address] [place] [address] [address] [place] [address] Phone [phone] Care Team Providers Care Car Rental Deliverer Name Role Phone Gita Morris MD Unavailable [phone] SEBAS URENA MD Unavailable [phone] INSURANCE PROVIDERS Payer name Policy type / Coverage type [place] red republican [employer] Medicaid 1 [id number]
--- OUTSIDE RECORDS SUMMARY | 2024-12-02 21:02 | XMS_ITS | Data Portability ---
Author Organization [facility] Address [address] [place] [address] [place] [address] Care Team Providers Care Reclamation Worker Name Role Phone DAVID AVA Primary Care Provider [phone] Assessment Encounter Date Assessment Date Assessment LastModified by Organization Details LastModified Time 10/21/2024 10/21/2024 Patient is ___weeks . Discussed plan. [email or web address] Not available 10/21/2024 14:46:15 11/11/2024 11/11/2024 Patient is _28__weeks . Discussed plan. Not available 11/11/2024 15:49:24 11/25/2024 11/25/2024 Patient [...] Not available OB ROUTINE 2024 09:45A M MINGO MARCOS MD Not available Not available Not available Lab None recorde d. Referral None recorde d. Procedures None recorde d. Surgeries None recorde d. Imaging US, obstetr ic, follow- up 2024 025 [email or web address] [place], [address], [place], [address], 11/05/2024 22:26:43 US, [facility] ic, follow- up 2024 025 [email or web address] [place], [address], [address], [place], [address], 10/15/2024 19:35:34 Medication Orders None recorde d. Patient TargetsNo targets recorded. Patient InstructionsNo instructions recorded. Reason for Referral None Reported. Results Created Date Observation Date Name Description Value Unit Range Abnormal Flag Note LastModifiedBy Organization Detail LastModifiedTime 11/12/1911/11/2024 HEMAT OCRIT (HCT) HCT 36.1 % (based on docume nted legal sex) 34.0-4 5.0 Not Available [facility] (Lab) [address], [place], [address], 11/12/2024 13:43:25 11/12/19 25 11/11/2024 HEMOG LOBIN (HGB) HGB 11.8 g/dL (based on docume nted legal sex) 11.6-1 5.4 Not Available [facility] (Lab) [address], [place], [address], 11/12/2024 13:43:25 11/12/19 25 11/11/2024 HIV 1/2 ANTIG EN/AN TIBOD Y, REFLE X CONFI RMATI ON HIV antigen/anti body Nonrea ctive nonrea ctive HIV-1 antig en and HIV-1 /HIV- 2 antib odies were not detec juana. No labor atory evide nce of HIV infec tion. Not Available [facility] (Lab) [address], [place], [address], 11/12/2024 13:43:26 11/12/19 25 11/11/2024 GTT - GESTA KIRAN L SENG N, ACOG OB glucose, 1 hour screen 92 mg/dL 70-135 Not Available [facility] (Lab) [address], [place], [address], 11/12/2024 13:43:26 11/12/19 25 11/11/2024 RPR SCREE N, REFLE X TITER /CONF IRMAT ION RPR qualitative Nonrea ctive nonrea ctive Not Available [facility] (Lab) [address], [place], [address], 11/12/2024 13:43:26 09/16/19 25 09/16/2024 US, obste tric, 2nd or 3rd trime ster No observ ation record ed. [email or web address] [place] [address], [place], [address], 09/16/2024 18:08:06 09/16/19 25 09/16/2024 US, obste tric, follo w-up No observ ation record ed. [email or web address] [address], [place], [address], 09/18/2024 17:43:31 10/15/19 25 10/15/2024 US, obste tric, follo w-up No observ ation record ed. [email or web address] [address], [place], [address], 10/28/2024 19:09:36 10/15/19 25 10/15/2024 US, obste tric, follo w-up No observ ation record ed. [email or web address] [place] [address], [place], [address], 10/15/2024 18:36:04 11/05/19 25 11/05/2024 US, obste tric, follo w-up No observ ation record ed. [email or web address] [place] [address], [place], [address], 11/05/2024 18:36:53 11/05/19 25 11/05/2024 US, obste tric, follo w-up No observ ation record ed. [email or web address] [address], [place], [address], 11/10/2024 09:29:45 Result Notes None recorded. Problems Name Problem SNOMED Code Status Onset Date Resolution Date Notes Provider Name and Address Organization Details Recorded Time 68769146 Active 2023 [facility] 4 12:10:37 Obesity 034750373 Active bmi 37-anten atal testing Shwetha Pena CNM [address], [place], [address], [facility] 4 12:35:08 Primigravi da 078041452 Active bASA Shwetha Pena CNM [address], [place], [address], [facility] 4 12:36:02 COVID-19 382937869 Active 2024 bASA and serial growth Danica Sim[facility], [facility] 5 15:23:56 COVID-19 541771887 Active 2024 bASA and serial growth Danica Nichols [facility], [facility] 5 15:23:56 Problem Notes None recorded. Procedures Surgical History Date Name Laterality Status Provider Name and Address Organization Details Recorded Time 03/10/20 24 Date of Last Pap Smear completed Lesli Riojas [facility] 06/04/2024 13:18:31 09/09/19 09 tonsilectomy/adeno ids completed Leslifrederic Riojas [facility] 07/01/2024 16:59:33 09/09/19 07 adenomyomectomy completed Leslifrederic Riojas [facility] 07/01/2024 16:59:28 Imaging Results Imaging Date Name Status LastModified by Organiz ation Details LastModified Time 09/16/2024 US, obstetric, 2nd or 3rd trimester completed [email or web address] [place] [address], [place], [address], 09/16/2024 18:08:06 09/16/2024 US, obstetric, follow-up completed [email or web address] [address], [place], [address], 09/18/2024 17:43:31 10/15/2024 US, obstetric, follow-up completed [email or web address] [address], [place], [address], 10/28/2024 19:09:36 10/15/2024 US, obstetric, follow-up completed [email or web address] [place] [address], [place], [address], 10/15/2024 18:36:04 11/05/2024 US, obstetric, follow-up completed [email or web address] [place] [address], [place], [address], 11/05/2024 18:36:53 11/05/2024 US, obstetric, follow-up completed [email or web address] [address], [place], [address], 11/10/2024 09:29:45 Procedure Notes None recorded. Medical [...] Address Organization Details Last Updated DateTime 10/21/2024 480568.0 2221 g 36.5 kg/m2 170.18 cm 115 mm[Hg] 68 mm[Hg] [facility] 14:46:49 Date Recorded Body weight Body mass index (BMI) Body height Systolic blood pressure Diastolic blood pressure Provider Name and Address Organization Details Last Updated DateTime 11/11/2024 565077.4 2984 g 36.3 kg/m2 170.18 cm 129 mm[Hg] 77 mm[Hg] Lesli [facility] 5 15:46:39 Date Recorded Body weight Body mass index (BMI) Body height Systolic blood pressure Diastolic blood pressure Provider Name and Address Organization Details Last Updated DateTime 11/25/2024 470096.4 2984 g 36.3 kg/m2 170.18 cm 116 mm[Hg] 73 mm[Hg] Lesli [facility] 14:24:46 Social History Question Answer Notes LastModified by Organizat ion Details LastModified Time Tobacco Smoking Status Never Smoker Jane willard, [facility] 12/17/2023 13:45:36 What Is Your Level Of Alcohol Consumption? None [email or web address] Information not available 06/05/2024 If You Are , What Was Your Level Of Alcohol Consumption Prior To ? Occasional [email or web address] Information not available 06/05/2024 How Many Years [...] Or The Highest Degree You Have Received? 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 No liberty Information not available 03/10/2024 Do You Feel Stressed (tense, Restless, Nervous, Or Anxious, Or Unable To Sleep At Night)? [id number] [email or web address] Information not available 07/01/2024 Do You Use Any Illicit Or Recreational Drugs? No liberty Information not available 03/10/2024 Do You Use Sunscreen Routinely? Yes liberty Information not available 03/10/2024 How Many Years Have You Smoked Tobacco? 0 Information not available 03/10/2024 Have You Used IV Drugs? No Information not available 03/10/2024 Sex: Unknown Functional Status Question Answer Note LastModified by Organizat ion Details LastModified Time Do you have difficulty walking or climbing stairs? No [email or web address] Information not available 06/05/2024 Are you able to walk? YESWOREST Information not available 03/10/2024 Are you able to care for yourself? Yes [email or web address] Information not available 06/05/2024 Do you have difficulty dressing or bathing? No [email or web address] Information not available 06/05/2024 What is your exercise level? Occasional Information not available 03/10/2024 Mental Status None recorded. Family History Relationship Description Onset Age of this Age Resolved Age Notes LastModified by Organization Details LastModified Time Mother Hypertensive disorder liberty Not available 2023 13:48:23 Paternal Grandmother Malignant tumor of breast [email or web address] Not available 2023 14:05:10 Paternal Grandfather Diabetes mellitus Not available 2023 13:49:17 Maternal Aunt Polycystic ovary syndrome [email or web address] Not available 11/07 14:08:15 Maternal Grandmother Disorder of thyroid gland Not available 07/22 12:10:06 Maternal Grandfather Hypertensive disorder [email or web address] Not available 07/22 12:10:06 Maternal Grandfather Diabetes mellitus [email or web address] Not available 09/16 16:36:23 Father Disorder of thyroid gland [email or web address] Not available 07/22 12:10:06 Medical History Condition [...] SNOMED-CT Code Diagnosis ICD10 Code Diagnosis Note [id number] MARIA Martinez [place] [address] [address] 12/17/2023 13:38:11 12/17/2023 14:38:14 Contraception care management 052538116 Z30.9 Discussed all control options in great [...] care. Initial pr escription of oral contraception 310684461 Z30.011 [id number] MARIA Martinez [place] [address] [address] 03/10/2024 16:17:42 03/11/2024 11:09:35 Screening procedure 76034626 Z13.9 Gynecologi c examination 20578536 Z01.419 Z11.3 Z11.8 WWEpap updateddec lined STI [...] plan if desired. Contracept ion care management 191749423 Z30.9 All BC options discussedo pts to switch to nextstelli srx sent, r/b/a reviewedre cords requested from recent pelvic u/s at [facility] d check in 3-4 months [id number] Pamela Zee [place] [address],[place] [address] 06/05/2024 13:55:23 06/15/2024 14:54:37 Uterine size for dates discrepancy 229398100 O26.849 [id number] [facility] [address] [address] 06/05/2024 13:57:09 06/08/2024 07:47:10 [id number] Kaila Correa [place] [address],[place] [address] 06/29/2024 16:26:08 06/29/2024 16:57:01 [id number] [facility] [address] [address] 07/01/2024 16:31:47 07/02/2024 10:28:26 Nausea and vomiting 51458313 R11.2 Amenorrhea 04753067 N91. 2 reviewed precaution s and educationo k for flu/covid vaccinesed c 02/01/25, continue vitamin dailypap up to date [id number] [facility] [address],[place] [address] 07/21/2024 12:14:52 07/21/2024 13:12:57 screening 691472109 Z36.82 Z3A.12 [id number] [facility] [address] [address] 07/22/2024 11:55:57 07/22/2024 12:52:32 Routine care 660102589 Z34.90 Gestation period, 12 weeks 71894249 Z3A.12 Dizziness 286706422 R42 [id number] [facility] [address] [place] [address] 08/19/2024 11:16:38 08/19/2024 12:09:53 Abdominal pain in 749200367 O99.891 Z3A.16 [id number] Shwetha Pena [facility] [address],[place] [address] 08/19/2024 11:17:59 08/19/2024 14:00:37 Gestation period, 16 weeks 02578910 Z3A.16 [id number] Shwetha Pena [facility] [address],[place] [address] 09/16/2024 14:36:08 09/16/2024 17:06:53 Gestation period, 20 weeks 67990573 Z3A.20 [id number] [facility] [address],[place] [address] 09/16/2024 14:46:47 09/16/2024 16:21:14 screening for malformation 453568610 Z36.3 Z3A.20 [id number] [facility] [address],[place] [address] 10/15/2024 11:44:24 10/15/2024 14:35:28 screening 112952363 Z36.2 Z3A.24 [id number] Shwetha Pena [facility] [address],[place] [address] 10/21/2024 14:31:12 10/21/2024 14:59:33 Gestation period, 25 weeks 28478890 Z3A.25 [id number] [facility] [address],[place] [address] 11/05/2024 14:48:54 11/05/2024 15:54:01 condition affecting obstetrical care of mother 955590195 O35.3XX0 Z3A.27 [id number] Shwetha Pena [facility] [address],[place] [address] 11/11/2024 15:30:06 11/11/2024 16:02:07 Gestation period, 28 weeks 17523676 Z3A.28 [id number] Shwetha Pena [facility] [address],[place] [address] 11/25/2024 14:07:57 11/25/2024 14:50:54 Gestation period, 30 weeks 88638954 Z3A.30 Health Concerns Section Related Observation LastModified by Organization Detai ls LastModified Time None Recorded Concern Status LastModified by Organization Details LastModified Time None Recorded Advance Directives Directive None Recorded Payers Encounter Date Sequence Insurance Name Policy Number Policy Acosta Covered Member ID Acosta Member ID Guarantor Name 10/15/2024 1 [employer] - [employer] B[employer]EFIT PLAN MANAGEMENT (PPO) 2001 Girma Chin [id number] Roberto Cobianell 10/15/2024 2 [place] [facility] Roberto Cobianell [id number] Roberto Muhammad 10/21/2024 1 [employer] - [employer] BENEFIT PLAN MANAGEMENT (PPO) 2001 Girma Chin [id number] Roberto Cobianell 10/21/2024 2 [place] [facility] Roberto Cobianell [id number] Roberto Cobianell 11/05/2024 1 [employer] - [employer] BENEFIT PLAN MANAGEMENT (PPO) 2001 Girma Chin [id number] Roberto Cobianell 11/05/2024 2 [place] [facility] Roberto Muhammad [id number] Roberto Muhammad 11/11/2024 1 [employer] - [employer] BENEFIT PLAN MANAGEMENT (PPO) 2001 Girma Chin [id number] Roberto Muhammad 11/11/2024 2 [place] [facility] Roberto Muhammad [id number] Roberto Muhammad 11/25/2024 1 [employer] - [employer] BENEFIT PLAN MANAGEMENT (PPO) [address] Girma Chin [id number] Roberto Cobianell 11/25/2024 2 [place] [facility] Roberto Muhammad [id number] Roberto Muhammad OBGyn Episode Ob Episode Information Episode Created Date Number of Fetuses Patient Bloodtype Patient rh Status Prepregnancy Weight lbs Domestic Partner Domestic Partner Phone Father Name Embryology Professor Status 07/22/20 24 1 B Positive 230 Austyn Muhammad OPEN Fetus Data First Name Last Name Admitted to NICU Weight (g) Sex Living Outcome Pediatric Complications Fetus ID Race Codes Race Delivery Type [id number] Problems Problem Notes ovarian cyst Problem Name Start Date End Date Resolution Snomed Code Not e Primigravida 209829601 bASA COVID-19 09/28/2024 682518681 bASA and serial growth Obesity 856224804 bmi 37-ant enatal testing Deshaun Calculation Initial [...] Weight in lbs Pre/Post Dialysis Refused Weight 225.955878153858 BP Diastolic BP Location Tested BP Systolic [...] Type Weight in lbs Pre/Post Dialysis Refused 225.526800591038 BP Diastolic BP Location Tested BP Systolic [...] Type Weight in lbs Pre/Post Dialysis Refused 228.477066715745 BP Diastolic BP Location Tested BP Systolic [...] Type Weight in lbs Pre/Post Dialysis Refused 233.330711235755 BP Diastolic BP Location Tested BP Systolic [...] Type Weight in lbs Pre/Post Dialysis Refused 232.16369312509 BP Diastolic BP Location Tested BP Systolic [...] Type Weight in lbs Pre/Post Dialysis Refused 232.69787916117 BP Diastolic BP Location Tested BP Systolic [...]
--- OUTSIDE RECORDS SUMMARY | 2024-12-02 21:02 | XMS_ITS | Clinical Summary ---
Author Organization [facility] Address [address] [place] [address] Phone Care Team Providers Care Hydro Plant Technician Name Role Phone Blank Nicole MD Primary [...] cm (5' 8 ) 08/10/2020 10:18 AM INDEXER Body Mass Index 35.12 08/10/2020 10:18 AM INDEXER Plan of Treatment Health Maintenance Due Date [...] exists HPV VACCINES Completed 08/10/2020, 06/22/2015 Insurance [facility] Address: [facility] [id number] [place] [address] Care Teams Hydro Plant Technician Relationship Specialty Start Date End Date Blank Nicole MD PCP - General Pediatrics 05/31/17
--- OUTSIDE RECORDS SUMMARY | 2024-12-02 21:02 | XMS_ITS | Clinical Summary ---
Author Organization [facility] Address [address] [place] [address] Care Team Providers Care Living Manager Name Role Phone Farzaneh Adkins MD Primary Care Provider Source Comments [facility],non-[facility] Affiliates and Associated Physician Practices is amultiple site organization consisting of ambulatory clinics and hospital sitesin [place], [place], [place] and [place]. This disclosure is being madepursuant to the Care Everywhere program and may not contain all information available regarding this patient. Last updated 18.[facility] [employer] Allergies No known active allergies Medications Be [...] age to complete this topic Care Teams Living Manager Relationship Specialty Start Date End Date Farzaneh Adkins MD [address] [place] [address] PCP - General 02/02/12
--- NOTE | 2024-12-02 21:06 | ECG_ITS ---
Test Date: 2024-12-02 21:07:57 Measurements Intervals [facility] Rate: 123 P: 37 ID: 137 QRS: 37 QRSD: 84 T: -2 QT: 314 QTc: 450 Interpretive Statements SINUS TACHYCARDIA NONSPECIFIC T-WAVE ABNORMALITY ABNORMAL RHYTHM ECG Compared to ECG 11/30/2024 21:12:50 T-wave abnormality now present Left posterior fascicular block no longer present Poor R-wave progression no longer present Electronically Signed On 12-03-2024 10:51:39 CDT by Archie Henderson M.D.
[2024-12-02 22:52] VITALS: BP 97/77; PULSE 104; RESP 22; O2SAT 96
[2024-12-02 22:55] VITALS: BP 118/72
--- OUTSIDE RECORDS SUMMARY | 2024-12-02 23:01 | XMS_ITS | Clinical Summary ---
Author Organization [facility] Address [address] [place] [address] Care Team Providers Care Material Checker Name Role Phone Farzaneh dAkins MD Primary Care Provider [phone] Source Comments [facility],non-[facility] Affiliates and Associated Physician Practices is amultiple site organization consisting of ambulatory clinics and hospital sitesin [place], [place], [place] and [place]. This disclosure is being madepursuant to the Care Everywhere program and may not contain all information available regarding this patient. Last updated 18.[facility] [employer] Allergies No known active allergies Medications Be [...] age to complete this topic Care Teams Material Checker Relationship Specialty Start Date End Date Farzaneh Adkins MD [address] [place] [address] PCP - General 02/02/12
--- OUTSIDE RECORDS SUMMARY | 2024-12-02 23:01 | XMS_ITS | CONTINUITY OF CARE DOCUMENT ---
Author Name freeman millard Address Unknown Organization [facility] Address [address] [place] [address] [address] [place] [address] Phone [phone] Care Team Providers Care Cashier Receptionist Name Role Phone Gita Morris MD Unavailable SEBAS URENA MD Unavailable [phone] INSURANCE PROVIDERS Payer name Policy type / Coverage type [place] red democr[employer] Medicaid 1 [id number]
--- OUTSIDE RECORDS SUMMARY | 2024-12-02 23:01 | XMS_ITS | Clinical Summary ---
Author Organization [facility] Address [address] [place] [address] Phone Care Team Providers Care Glue Bone Drier Name Role Phone Blank Nicole MD Primary [...] cm (5' 8 ) 08/10/2020 10:18 AM PLANT GENERAL MANAGER Body Mass Index 35.12 08/10/2020 10:18 AM PLANT GENERAL MANAGER Plan of Treatment Health Maintenance Due Date [...] exists HPV VACCINES Completed 08/10/2020, 06/22/2015 Insurance [facility] Address: [facility] [id number] [place] [address] Care Teams Glue Bone Drier Relationship Specialty Start Date End Date Blank Nicole MD PCP - General Pediatrics 05/31/17
--- NOTE | 2024-12-02 23:04 | ED.URI ---
HPI - URI/Sore Throat General Chief Complaint: Upper Respiratory Infection Stated Complaint: Burning in chest with cough, SHOB Time Seen by Provider: 12/02/24 22:53 Source: patient and other Mode of arrival: ambulatory Limitations: no limitations History of Present Illness HPI Narrative: female stated 31 weeks presents with report of burning in her chest with cough feeling short of breath. She was diagnosed with influenza B on Saturday. She has been trialing Tamiflu, Robitussin, and Tylenol. She denies any underlying respiratory conditions. She had a temperature of 102? F and she took Tylenol at 7:00 p.m. as well as a dose of Tamiflu at that time. has otherwise not been complicated. Her OB Gyne is Shwetha Pena through [facility]. She denies any chills. Her cough has been mostly dry although occasionally productive of scant sputum. No lower extremity edema, bilaterally or unilaterally. No hemoptysis. Related Data Home Medications ?Medication ?Instructions ?Recorded ?Confirmed ?Last Taken ?Type aspirin 81 mg chewable tablet 81 mg PO DAILY 11/30/24 11/30/24 11/30/24 History Allergies Allergy/AdvReac Type Severity Reaction Status Date / Time No Known Allergies Allergy Verified 12/02/24 21:01 [facility] Past Medical History Medical History Healthy female adult Surgical History Surgical History No pertinent past surgical history Exam Narrative: GENERAL: Well-appearing, well-nourished, and in no acute distress. HEAD: Normocephalic, atraumatic. EYES: Non injected, non icteric ENT: No epistaxis. NECK: Supple. CHEST: Speaking in full sentences. No respiratory distress. Lungs clear to auscultation bilaterally in anterior and posterior eduardo (upper, middle, and lower bilaterally) without appreciable rhonchi, crackles, wheezes, or focal areas of consolidation. HEART: Regular rate and rhythm. . ABDOMEN: Gravid. EXTREMITIES: Normal range of motion. No bilateral lower extremity edema. SKIN: Warm, dry, no rash. NEURO: No focal deficits. Alert and oriented x3. PSYCH: Normal mood and affect. Course Vital Signs Vital signs: Vital Signs Temperature 97 F L 12/02/24 21:02 Pulse Rate 120 H 12/02/24 21:02 Respiratory Rate 15 12/02/24 21:02 Blood Pressure 113/66 12/02/24 21:02 Pulse Oximetry 99 12/02/24 21:02 Oxygen Delivery Room Air 12/02/24 21:02 Temperature 97 F L 12/02/24 21:02 Pulse Rate 101 H 12/03/24 02:27 Respiratory Rate 22 H 12/03/24 02:27 Blood Pressure 132/75 12/03/24 02:27 Pulse Oximetry 100 12/03/24 02:27 Oxygen Delivery Room Air 12/02/24 21:02 MDM - URI/Sore Throat MDM Narrative Medical decision making narrative: 24-year-old 000 female who is 31 weeks 4 days gestational age by a stated estimated due date 01/30/2025 presents with cough, shortness of breath, and a burning sensation in her chest. Recently diagnosed with influenza B. Has been trying Tamiflu, Robitussin, and Tylenol. In the emergency department she is afebrile with vital signs notable for tachycardia. Patient declines chest x-ray given she had 1 Saturday. Normocytic anemia, stable from previous. YEARS Algorithm : Yes Clinical signs of DVT: No Hemoptysis: No PE is most likely diagnosis: No D-dimer >1000ng/mL: Yes Result: PE NOT Excluded; CTA study recommended. We extensively discussed the risks and benefits. She does elect to proceed. Negative for pulmonary embolism. There is evidence of a pneumonia. CURB-65 score Confusion (No 0, Yes +1): 0 BUN >19mg/dl (No 0, Yes +1): 0 RR >/= 30 (No 0, Yes +1): 0 SBP <90mmHg or DBP </=60mmHg (No 0, Yes +1): 0 Age >/=65 (No 0, Yes +1): No Result = 0?points Low risk group: 0.6% 30-day mortality. Consider outpatient treatment Patient given first dose of antibiotic with the rest of the course prescribed. Advised follow-up with her primary care physician as well as Ob Gyne. Her tachycardia is improved but still borderlien/present. Differential Diagnosis Differential diagnosis: Likely upper respiratory infection, viral infection, bronchitis, influenza and other (Pneumonia, pulmonary embolism) Lab Data Attestation: I reviewed the patient's lab results. Lab results narrative: Normal renal function 12/02/24 23:19 12/02/24 23:19 Labs: Lab Results 12/02/24 Range/Units 23:19 WBC 7.4 (4.5-10.0) K/mm3 RBC 4.20 (4.2-5.4) M/mm3 Hgb 11.9 L (12.0-15.0) g/dL Hct 36.3 L (37.0-47.0) % MCV 86.4 (80-100) fl MCH 28.3 (26-34) pg MCHC 32.8 (32-36) g/dl RDW 14.1 (11.5-14.5) % Plt Count 220 (150-375) k/mm3 MPV 10.8 H (7.4-10.4) fl Immature Gran % (Auto) 1.0 H (0-0.5) % Neut % (Auto) 74.1 H (45.5-73.1) % Lymph % (Auto) 14.1 L (18.3-44.2) % Ector % (Auto) 9.8 H (2.6-8.5) % Eos % (Auto) 0.7 (0-4.4) % Baso % (Auto) 0.3 (0.2-1.2) % Lymph # (Auto) 1.04 (0.9-3.2) K/mm3 Ector # (Auto) 0.7 H (0.1-0.6) K/mm3 Eos # (Auto) 0.1 (0-0.3) K/mm3 Baso # (Auto) 0.0 (0.0-0.1) K/mm3 Abs Immat Gran (auto) 0.07 H (0.00-0.031) K/mm3 Absolute Neuts (auto) 5.5 (1.3-6.7) K/mm3 Absolute Nucleated RBC 0.000 (0.0-0.012) K/mm3 Nucleated RBC % 0.0 (0.0-0.2) % PT 14.2 (11.1-14.7) Seconds INR 1.1 APTT 30.1 (22.3-36.8) Seconds D-Dimer 1.96 H (<0.48) ug/mL Sodium 136 L (137-145) mmol/L Potassium 3.7 (3.4-5.0) mmol/L Chloride 105 (98-107) mmol/L Carbon Dioxide 19 L (22-30) mmol/L Anion Gap 12 (4-12) mmol/L BUN 5 L (7-17) mg/dL Creatinine 0.51 L (0.7-1.0) mg/dL Estim Creat Clear Calc 176 ml/min Estimated GFR > 60 (59 - ) Glucose 77 (65-110) mg/dL Calcium 8.9 (8.4-10.2) mg/dL Imaging Data Radiologist's impression: CTA Chest Stat Rad: Mild patchy consolidation at the right lung base, concerning for minimal pneumonia. No pleural effusion pneumothorax. Cardiomegaly. No acute pulmonary embolism. Atherosclerotic changes of the aorta. Thyroid within normal limits. Mediastinum in lymph nodes within normal limits. Superior abdomen with hepatic steatosis. Musculoskeletal with degenerative changes. ECG Data EKG #1: Attestation: I personally reviewed and interpreted this ECG as follows: ECG completion date: 12/02/24 ECG completion time: 21:07 Interpretation: Sinus tachycardia at a rate of 123 beats per minute. NJ interval 137. QRS 84. QT/QTC 314/387. Good R-wave progression across the precordial leads. T-wave inversion in lead 3. Is upright in contiguous inferior lead 2 and appears upright in AVF. No other T-wave inversions. Discharge Plan Discharge Clinical Impression: Normocytic anemia, Right lower lobe pneumonia Patient Disposition: Home, Self-Care Condition: Stable Instructions: Antibiotic Form, Anemia (ED), Pneumonia (ED) Additional Instructions: No evidence of a blood clot in your lungs but you do have pneumonia. Your given the 1st dose of antibiotic in the emergency department the rest of the course as prescribed. This is safe to take during . It is safe to take Tylenol during , maximum 4000mg/day, for fever or pain. Continue going to your scheduled appointments. Follow-up with your primary care physician. Return to the emergency department with any new/worsen/unmanaged symptoms. Patient Language: Estonian Prescriptions: New azithromycin 500 mg tablet 500 mg PO DAILY 4 Days Qty: 4 0RF Rx Instructions: start day 2 of therapy (12/04/24); received first dose in ED 12/03 AM acetaminophen 500 mg capsule 1,000 mg PO Q6H PRN (Reason: pain) Qty: 30 0RF No Action aspirin 81 mg tablet,chewable 81 mg PO DAILY oseltamivir 75 mg capsule 75 mg PO BID Qty: 9 0RF famotidine 10 mg tablet 10 mg PO BID Qty: 14 0RF Follow-up/Referrals: Krystle Mcleod DO [Primary Care Provider] - Shwetha Pena CNM [Certified Nurse Postdoctoral Scientist] - (SUP[employer] PROCUREMENT MANAGER) Stand Alone Forms: Work/School Release IP Time of Disposition: 02:21
[2024-12-02 23:28] LABS: Basophils Percent Auto 0.3 % (0.2-1.2); Eosinophils Absolute Auto 0.1 K/mm3 (0-0.3); Eosinophils Percent Auto 0.7 % (0-4.4); Hematocrit 36.3 % (37.0-47.0); Hemoglobin 11.9 g/dL (12.0-15.0); Immature Granulocyte Absolute 0.07 K/mm3 (0.00-0.031); Lymphocytes Absolute Auto 1.04 K/mm3 (0.9-3.2); Lymphocytes Percent Auto 14.1 % (18.3-44.2); Mean Corpuscular HGB Conc 32.8 g/dl (32-36); Mean Corpuscular Hemoglobin 28.3 pg (26-34); Mean Corpuscular Volume 86.4 fl (80-100); Mean Platelet Volume 10.8 fl (7.4-10.4); Monocytes Absolute Auto 0.7 K/mm3 (0.1-0.6); Monocytes Percent Auto 9.8 % (2.6-8.5); Neutrophils Absolute Auto 5.5 K/mm3 (1.3-6.7); Neutrophils Percent Auto 74.1 % (45.5-73.1); Platelet Count Result 220 k/mm3 (150-375); Red Cell Distribution Width 14.1 % (11.5-14.5); White Blood Count 7.4 K/mm3 (4.5-10.0)
[2024-12-02 23:38] LABS: Anion Gap 12 mmol/L (4-12); Blood Urea Nitrogen 5 mg/dL (7-17); Calcium 8.9 mg/dL (8.4-10.2); Carbon Dioxide 19 mmol/L (22-30); Chloride 105 mmol/L (98-107); Estimated CRCL calculation 176 ml/min; Estimated Glomerular Filt Rate > 60; Glucose 77 mg/dL (65-110); Potassium 3.7 mmol/L (3.4-5.0); Sodium 136 mmol/L (137-145)
[2024-12-02 23:49] LABS: INR 1.1; Prothrombin Time 14.2 Seconds (11.1-14.7)
[2024-12-02 23:50] LABS: Partial Thromboplastin Time 30.1 Seconds (22.3-36.8)
[2024-12-02 23:53] LABS: D Dimer 1.96 ug/mL (<0.48)
[2024-12-03] MEDS: ACETAMINOPHEN 500 MG TABLET 1000 MG PO (02:26)
[2024-12-03] MEDS: AZITHROMYCIN 250 MG TABLET 500 MG PO (02:26)
[2024-12-03 02:27] VITALS: BP 132/75; PULSE 101; RESP 22; O2SAT 100
== END 2024-12-03 02:31 | disposition home or self-care (01) ==
PROVIDERS: Emergency Provider Student in an Organized Health Care Education/Training Program; PCP Family Medicine
DX: J10.00 Influenza due to other identified influenza virus with unspecified type of pneumonia (principal); O99.013 Anemia complicating pregnancy, third trimester; D64.9 Anemia, unspecified; O99.891 Other specified diseases and conditions complicating pregnancy; R00.0 Tachycardia, unspecified; R94.31 Abnormal electrocardiogram [ECG] [EKG]; Z3A.31 31 weeks gestation of pregnancy
CPT/HCPCS: 36415; 71275; 80048; 85025; 85380; 85610; 85730; 93005; 99284; A9270; Q9967